=== PATIENT | female | born 1985 | race Caucasian/White ===

== ENCOUNTER 2016-12-28 05:27 | Inpatient (IN) | payer OTHER ==
--- NOTE | 2016-12-26 15:23 | MH ---
cc: ABEL HERNANDEZ M.D. DATE OF ADMISSION: 12/28/2016 REASON FOR ADMISSION: The patient is admitted for repeat section at term. HISTORY OF PRESENT ILLNESS: The patient is a 32-year-old female 2, para 1 with previous section in 2010 for failure to progress who delivered a healthy male infant weighing 7 pounds, 13 ounces. The patient had originally elected for a trial of labor after section and due to an estimated weight at 9 pounds with an unfavorable cervix elected to proceed with a repeat section. Her last menstrual period was 03/29/2016. Her estimated date of confinement is January 03, 2017. She is 39 weeks and 1 day. The patient's course has been unremarkable. Group B Strep negative. One-hour glucose test was normal. The patient's blood type is A+. ALLERGIES: ERYTHROMYCIN. PAST MEDICAL HISTORY: She denies any other systemic or chronic disease states. PAST SURGICAL HISTORY: section in 2010. 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 She is . She denies any use of alcohol, tobacco or illicit substances. MEDICATIONS: The patient's current list of medications includes: 1. vitamins. 2. Zantac 150 twice a day. PHYSICAL EXAMINATION: GENERAL: The patient is a well-appearing female in no acute distress. VITAL SIGNS: Stable. Blood pressure is 120/80, the highest it has been is 140/90. The patient's pulse and respiratory rate are normal. She is afebrile. heart tones are in the 140s and reactive. Biophysical profile recently was 8/8. HEAD, EYES, EARS, NOSE, THROAT: No adenopathy. NECK: No thyromegaly. LUNGS: Clear in all cordova. CARDIAC: Regular rate and rhythm without murmurs, rubs or gallops. ABDOMEN: Gravid. Fundal height is 42 cm. PELVIC: Exam demonstrates a long, thick and closed cervix posterior. No presenting part palpable. Ultrasound is vertex. EXTREMITIES: Symmetrical full range of motion. No cyanosis, clubbing or edema. NEUROLOGIC: Grossly intact. Nonfocal. IMPRESSION: The patient is at 39 weeks and 1 day with history of previous section for elective repeat at term with estimated weight of 9 pounds. Group B Strep status negative. MD [place]/JCVane /1:16 PM /3:04 PM
[2016-12-28] VITALS (12 sets, daily range): BP systolic 105–134; BP diastolic 60–79; PULSE 75–95; RESP 16–20; TEMP 97.9–98.2; O2SAT 96–97
[~2016-12-28] VITALS: Ht 160 cm; Wt 108.9 kg
[2016-12-28] MEDS ORDERED: PREN1TAB63 (05:46)
[2016-12-28] MEDS ORDERED: ZANT150T2 PO (05:47)
[2016-12-28 06:22] LABS: AUTOMATED NEUTROPHIL # 8.5 TH/MM3 (1.8-7.7); BASOPHIL % 0.2 % (0.0-2.0); EOSINOPHIL # 0.1 TH/MM3 (0-0.4); EOSINOPHIL % 0.6 % (0.0-4.0); HEMATOCRIT 34.6 % (35.0-46.0); LYMPH % 21.2 % (9.0-44.0); LYMPHOCYTE # 2.6 TH/MM3 (1.0-4.8); MEAN CELL VOLUME 85.3 FL (80.0-100.0); MEAN CORPUSCULAR HEMOGLOBIN 28.8 PG (27.0-34.0); MEAN CORPUSCULAR HGB CONC 33.7 % (32.0-36.0); MONO % 8.1 % (0.0-8.0); NEUT % 69.9 % (16.0-70.0); PLATELET COUNT 260 TH/MM3 (150-450); RED BLOOD COUNT 4.06 MIL/MM3 (4.00-5.30); RED CELL DISTRIBUTION WIDTH 14.6 % (11.6-17.2); WHITE BLOOD COUNT 12.1 TH/MM3 (4.0-11.0)
[2016-12-28] MEDS ORDERED: ceFAZolin 2 GM PREMIX 50 ML IV SCH (06:30)
[2016-12-28] MEDS ORDERED: CITRIC ACID-SODIUM CITRATE LIQ 30 ML UDC PO SCH (06:30)
[2016-12-28] MEDS ORDERED: LACTATED RINGER'S 1000 ML IV ONE (06:30)
[2016-12-28 06:32] LABS: HEMO FLAGS AUTO DIFF
[2016-12-28 07:06] LABS: BACTERIA, URINE FEW /hpf; BLOOD, URINE NEG (NEG); COMMENT (UR) CULT NOT INDICATED; CULTURE IF INDICATED CULT NOT INDICATED; GLUCOSE,URINE NEG (NEG); HYALINE CAST, URINE 2 /lpf (RARE); KETONE, URINE NEG (NEG); MUCUS URINE FEW /lpf (OCC); NITRITE,URINE NEG (NEG); SQUAMOUS EPITHELIAL CELL URINE <1 /hpf (0-5); TRANSITIONAL EPI CELLS, URINE <1 /hpf; URINE COLOR YELLOW (YELLW/STRAW)
[2016-12-28 07:13] LABS: BANDS 2 % (0-6); MYELOCYTES 2 % (0-0); PLATELET ESTIMATE SMEAR NORMAL (NORMAL); PLATELET MORPHOLOGY NORMAL (NORMAL); POLYS (SEG NEUTROPHILS) 62 % (16-70); SCAN/DIFF FINAL DIFF MANUAL; WBC DIFF SAMPLE 100
[2016-12-28] MEDS ORDERED: OXYTOCIN 10 UNIT/ML AMP ONE (07:14)
[2016-12-28] MEDS ORDERED: SIMETHICONE 80 MG CHEWABLE TAB PO PRN (07:30)
[2016-12-28] MEDS ORDERED: KETOROLAC TROMETHAMINE 60 MG/2 ML (IM) VIAL IM PRN (07:30)
[2016-12-28] MEDS ORDERED: OXYTOCIN 30 UNITS-500ML PREMIX 500 ML IV ONE (07:30)
[2016-12-28] MEDS ORDERED: SODIUM CHLORIDE 0.9% FLUSH 10 ML FLUSH IV FLUSH PRN (07:30)
[2016-12-28] MEDS ORDERED: ONDANSETRON HCL 4 MG/2 ML VIAL IV PUSH PRN (07:30)
[2016-12-28] MEDS: LACTATED RINGER'S 1000 ML INJ 1,000 ML IV SCH ×3 (07:45→15:59)
--- NOTE | 2016-12-28 08:39 | PD.OB.DELI ---
Procedure Note Section Procedure Performed by Gian Tejada Procedure: Repeat Low Transverse Sec Indication for delivery: Desired elective repeat Previous condition: None Informed consent obtained: For anesthesia, For procedure Confirmed correct: Patient, Procedure, Site, Time-out taken Anesthesia: Spinal Medication prior to procedure: As documented in eMAR Monitoring during procedure: Blood pressure monitoring, ekg monitor, doppler, Pulse oximetry Urinary catheter: Inserted using sterile technique, To dependent drainage Sterile preparation: Duraprep, In usual fashion Position: Supine with wedge to right side, Supine with safety belt applied Operative Features Skin Incision: Pfannenstiel Uterine Incision: Low transverse w/knife / scissors Membranes Ruptured: Artificially Presentation: Occiput anterior Delivery date: Dec 28, 2016 Delivery time: 00:00 Delivery of : Assisted (kiwi vacuum x1 pull, no pop off) Infant: Male One Minute : 7 Five Minute : 8 Weight: 7/4 Status of : Viable Placenta delivered: Intact Medications: Antibiotics, Oxytocin Estimated blood loss: 600cc Procedure tolerated: Well Maternal Condition: Stable Condition: Stable Gian Tejada MD Dec 28, 2016 08:39
[2016-12-28] MEDS ORDERED: MORPHINE SULFATE PF 5 MG/10 ML VIAL ONE (08:43)
[2016-12-28] MEDS ORDERED: ACETAMINOPHEN 1000 MG/100 ML 100 ML IV ONE (08:45)
[2016-12-28] MEDS ORDERED: KETOROLAC TROMETHAMINE 30 MG/ML (IVP) VIAL ONE (09:28)
[2016-12-28] MEDS ORDERED: OXYTOCIN 30 UNITS-500ML PREMIX 500 ML ONE (09:37)
[2016-12-28] MEDS: IBUPROFEN 600 MG TAB PO PRN ×2 (16:32→22:48)
[2016-12-28] MEDS: oxyCODONE/ACETAMINOPHEN 5 MG/325 MG TAB PO PRN ×2 (16:32→21:07)
[2016-12-28] MEDS: DOCUSATE SODIUM 50 MG/SENNA 8.6 MG TAB PO PRN (16:33)
[2016-12-28] MEDS ORDERED: OXYTOCIN 30 UNITS-500ML PREMIX 500 ML IV PRN (17:30)
[2016-12-29] VITALS: BP 110/72; PULSE 71; RESP 18; TEMP 98.5
[2016-12-29 02:57] VITALS: RESP 16
[2016-12-29 04:00] VITALS: BP 124/78; PULSE 78; RESP 18; TEMP 98
[2016-12-29] MEDS: oxyCODONE/ACETAMINOPHEN 5 MG/325 MG TAB PO PRN ×4 (04:44→22:09)
[2016-12-29] MEDS: DOCUSATE SODIUM 50 MG/SENNA 8.6 MG TAB PO PRN ×2 (04:44→15:46)
[2016-12-29 08:00] VITALS: BP 109/71; PULSE 75; RESP 18; TEMP 98
--- NOTE | 2016-12-29 09:11 | HHI.OB ---
Subjective Post Operative Day: 1 Remarks no complaints Objective Vitals/I&O Vital Signs Date Time Temp Pulse Resp B/P (MAP) Pulse Ox O2 Delivery O2 Flow Rate FiO2 12/29/16 04:00 78 18 124/78 (93) 12/29/16 04:00 98.0 12/29/16 02:57 16 12/29/16 00:00 98.5 71 18 110/72 (85) 12/28/16 21:00 98.0 75 18 108/66 (80) 12/28/16 17:53 75 12/28/16 17:52 114/78 (90) 12/28/16 15:00 81 20 105/65 (78) 12/28/16 15:00 98.1 12/28/16 10:20 98.0 81 16 112/60 (77) 12/28/16 09:45 97.9 12/28/16 09:35 91 16 134/62 (86) 96 12/28/16 09:21 95 16 132/60 (84) 96 Result Diagram: 12/28/16 06 Objective Remarks GENERAL: Well-nourished, well-developed patient. CARDIOVASCULAR: Regular rate and rhythm without murmurs, gallops, or rubs. RESPIRATORY: Breath sounds equal bilaterally. No accessory muscle use. ABDOMEN/GI: Abdomen soft, non-tender, bowel sounds present. Incision: dressing Clean, dry and intact. Fundus: Firm, non-tender at umbilicus. GENITOURINARY: Light to moderate bleeding. EXTREMITIES: No cyanosis or edema, non-tender, without signs of DVT. Medications and IVs Current Medications Medications (Trade) Dose Ordered Sig/Vin Route Start Time Stop Time Status Last Admin Lactated Ringer's 1,000 ml @ 150 mls/hr Q6H40M IV 12/28/16 06:30 (Bicitra Liq) 30 ml MUD ENGINEER PO 12/28/16 06:30 12/31/16 06:29 12/28/16 07:02 Cefazolin Sodium/ Dextrose 50 ml @ 100 mls/hr MUD ENGINEER IV 12/28/16 06:30 12/31/16 06:29 12/28/16 07:03 Oxytocin 500 ml @ 100 mls/hr UNSCH X1 PRN IV 12/28/16 17:30 12/29/16 17:29 (NS Flush) 2 ml BID IV FLUSH 12/28/16 09:00 (NS Flush) 2 ml UNSCH PRN IV FLUSH 12/28/16 07:30 (Mylicon Chew) 80 mg QID PRN PO 12/28/16 07:30 (Motrin) 600 mg Q6H PRN PO 12/28/16 07:30 12/28/16 22:48 (Percocet 5-325 Mg) 1 tab Q4H PRN PO 12/28/16 07:30 12/29/16 04:44 (Percocet 5-325 Mg) 2 tab Q4H PRN PO 12/28/16 07:30 (Monica-Colace) 2 tab Q12H PRN PO 12/28/16 07:30 12/29/16 04:44 (M-M-R Ii Inj) 0.5 ml ONCE ONCE SQ 12/29/16 16:00 12/29/16 16:01 (Boostrix Inj) 0.5 ml ONCE ONCE IM 12/29/16 16:00 12/29/16 16:01 (Zofran Inj) 4 mg Q6H PRN IV PUSH 12/28/16 07:30 Assessment/Plan Problem List: (1) delivery delivered ICD Codes: O82 - Encounter for delivery without indication Assessment and Plan POD #1 s/p repeat c/s Discharge Planning routine Attending Attestation pt seen by Fifi Cardoso MD Dec 29, 2016 09:11
[2016-12-29] MEDS: IBUPROFEN 600 MG TAB PO PRN ×3 (09:54→22:09)
[2016-12-29] MEDS ORDERED: DIPHTH/TETANUS/ACEL PERTUSSIS (BOOSTER) 0.5 ML VIAL/PFS IM ONE (16:00)
[2016-12-29] MEDS ORDERED: MEASLES, MUMPS, RUBELLA VACCINE 0.5 ML VIAL SQ ONE (16:00)
[2016-12-29] MEDS: SODIUM CHLORIDE 0.9% FLUSH 10 ML FLUSH IV FLUSH SCH (19:45)
[2016-12-29 20:30] VITALS: BP 106/72; PULSE 79; RESP 18; TEMP 98.7
[2016-12-29] MEDS: LACTATED RINGER'S 1000 ML IV SCH (22:05)
[2016-12-30] MEDS: LACTATED RINGER'S 1000 ML IV SCH ×2 (04:08→18:30)
[2016-12-30] MEDS: DOCUSATE SODIUM 50 MG/SENNA 8.6 MG TAB PO PRN (05:25)
[2016-12-30] MEDS: IBUPROFEN 600 MG TAB PO PRN ×3 (05:26→18:15)
[2016-12-30] MEDS: oxyCODONE/ACETAMINOPHEN 5 MG/325 MG TAB PO PRN ×3 (05:26→18:16)
[2016-12-30 08:00] VITALS: BP 130/74; PULSE 76; RESP 18; TEMP 98.5
--- NOTE | 2016-12-30 09:57 | HHI.OB ---
Subjective Post Operative Day: 2 Remarks pt wants to wait for circ tomorrow, baby had episodes of gagging, desat yesterday Objective Vitals/I&O Vital Signs Date Time Temp Pulse Resp B/P (MAP) Pulse Ox O2 Delivery O2 Flow Rate FiO2 12/29/16 20:30 79 106/72 (83) 12/29/16 20:30 98.7 18 Result Diagram: 12/28/16604 Objective Remarks GENERAL: Well-nourished, well-developed patient. CARDIOVASCULAR: Regular rate and rhythm without murmurs, gallops, or rubs. RESPIRATORY: Breath sounds equal bilaterally. No accessory muscle use. ABDOMEN/GI: Abdomen soft, non-tender, bowel sounds present. Incision: Clean, dry and intact. Fundus: Firm, non-tender at umbilicus. GENITOURINARY: Light to moderate bleeding. EXTREMITIES: No cyanosis or edema, non-tender, without signs of DVT. Medications and IVs Current Medications Medications (Trade) Dose Ordered Sig/Vin Route Start Time Stop Time Status Last Admin Lactated Ringer's 1,000 ml @ 150 mls/hr Q6H40M IV 12/28/16 06:30 (Bicitra Liq) 30 ml MANAGER PORTABLE PO 12/28/16 06:30 12/31/16 06:29 12/28/16 07:02 Cefazolin Sodium/ Dextrose 50 ml @ 100 mls/hr MANAGER PORTABLE IV 12/28/16 06:30 12/31/16 06:29 12/28/16 07:03 (NS Flush) 2 ml BID IV FLUSH 12/28/16 09:00 (NS Flush) 2 ml UNSCH PRN IV FLUSH 12/28/16 07:30 (Mylicon Chew) 80 mg QID PRN PO 12/28/16 07:30 (Motrin) 600 mg Q6H PRN PO 12/28/16 07:30 12/30/16 05:26 (Percocet 5-325 Mg) 1 tab Q4H PRN PO 12/28/16 07:30 12/30/16 05:26 (Percocet 5-325 Mg) 2 tab Q4H PRN PO 12/28/16 07:30 (Monica-Colace) 2 tab Q12H PRN PO 9/15/17 07:30 12/30/16 05:25 (Zofran Inj) 4 mg Q6H PRN IV PUSH 12/28/16 07:30 Assessment/Plan Problem List: (1) delivery delivered ICD Codes: O82 - Encounter for delivery without indication Assessment and Plan POD #2 s/p repeat c/s Discharge Planning routine Attending Attestation pt seen by Fifi Cardoso MD Dec 30, 2016 09:57
[2016-12-30] MEDS ORDERED: MAGNESIUM HYDROXIDE SUSP 30 ML CUP PO PRN (12:45)
[2016-12-30] MEDS: SODIUM CHLORIDE 0.9% FLUSH 10 ML FLUSH IV FLUSH SCH (19:23)
[2016-12-30 20:00] VITALS: BP_SYST 124; BP_SYST 164; BP_DIAS 69; BP_DIAS 99; PULSE 76; PULSE 87; RESP 18; TEMP 98.2
--- NOTE | 2016-12-30 22:02 | MP ---
cc: GIAN HERNANDEZ M.D. DATE OF SURGERY 12/28/2016 PREOPERATIVE DIAGNOSIS Term intrauterine , history of previous section, mild -induced hypertension. POSTOPERATIVE DIAGNOSIS Term intrauterine , history of previous section, mild -induced hypertension. PROCEDURE Repeat low transverse section. SURGEON Gian Hernandez MD ANESTHESIA Spinal by Dr. Kilgore. ESTIMATED BLOOD LOSS 600 cc. DRAINS Graham to gravity OPERATIVE FINDINGS Male infant delivered weighing 7 pounds 4 ounces. Loose nuchal cord was identified. Clear fluid. Three-vessel cord. Intact placenta. Baby's Apgars were 7 at one minute and 8 at five minutes. The baby weighed 7 pounds 4 ounces. INDICATIONS FOR PROCEDURE Patient with unfavorable cervix, desired a trial of labor. After discussing options and the unfavorable pelvis and cervix the patient elected for repeat section. Preop the patient received Ancef 2 grams prophylactically. PROCEDURE DETAILS She was taken to the operating room in stable condition and underwent spinal anesthetic without complication. She was prepped and draped. Graham was inserted by sterile technique and sequentials were placed on the lower extremities for VTE prophylaxis. Time-out was conducted and agreed by all present in the room. The patient had excellent pain control throughout. Previous Pfannenstiel incision was utilized taking it through the skin down through subcutaneous layer identifying the fascia and scoring it sharply and then dissecting it away from the rectus muscle, identifying the rectus muscle in the midline, opening the peritoneum sharply without complication, establishing a plane in the lower uterine segment, dissecting the peritoneum away from the lower uterine segment. And then a transverse incision was made in the lower uterine segment with clear fluid. The incision was then extended bluntly. The infant vertex was identified and secured with a Kiwi vacuum extractor and just gentle traction was applied. Delivery of the head was accomplished without difficulty. Nuchal cord was reduced easily. The infant was delivered in total with good tone and cry. The cord was doubly clamped and cut and passed off the operative field by the nurse in attendance. Cord samples obtained for typing. The placenta and cord were removed intact with trailing membranes. No retained tissue. Specimen was sent for donation. Uterus was explored. No retained tissue. Bleeding was minimal. Closure was accomplished with a double layer using 0 Monocryl first as a running simple suture followed by a second imbricating suture of 0 Monocryl. This uterus was normal size and shape, appropriate for immediate the postop delivery. No masses were identified. The full count was made and correct. The peritoneal layer was then closed with running suture of 2-0 Monocryl. Muscle bellies reapproximated with interrupted mattress suture of 2-0 Monocryl and the fascia was closed with 0 Vicryl in a simple running fashion. Subcutaneous layer was irrigated. Any active bleeding was cauterized and the space was reapproximated with a running suture of 2-0 Monocryl and renu were used close the skin. Excellent closure was noted. No active bleeding. The patient was stable. Dressing was applied. The final count was correct. was doing well in the nursery. Gian Hernandez MD [facility]/KK /8:40 AM /9:46 PM
[2016-12-31] MEDS: oxyCODONE/ACETAMINOPHEN 5 MG/325 MG TAB PO PRN ×3 (00:50→12:39)
[2016-12-31] MEDS: IBUPROFEN 600 MG TAB PO PRN ×2 (00:50→07:27)
[2016-12-31] MEDS: LACTATED RINGER'S 1000 ML IV SCH ×2 (01:10→06:52)
[2016-12-31 08:00] VITALS: BP 125/81; PULSE 70; RESP 12; TEMP 98.1
--- NOTE | 2016-12-31 08:55 | HHI.OB ---
Subjective Post Operative Day: 3 Remarks POD#3; doing well, stable for discharge Objective Vitals/I&O Vital Signs Date Time Temp Pulse Resp B/P (MAP) Pulse Ox O2 Delivery O2 Flow Rate FiO2 12/30/16 20:00 98.2 87 18 12/30/16 20:00 164/99 (120) 12/30/16 20:00 76 124/69 (87) Result Diagram: 12/28/16 0605 Objective Remarks GENERAL: Well-nourished, well-developed patient. CARDIOVASCULAR: Regular rate and rhythm without murmurs, gallops, or rubs. RESPIRATORY: Breath sounds equal bilaterally. No accessory muscle use. ABDOMEN/GI: Abdomen soft, non-tender, bowel sounds present. Incision: Clean, dry and intact. Fundus: Firm, non-tender at umbilicus. GENITOURINARY: Light to moderate bleeding. EXTREMITIES: No cyanosis or edema, non-tender, without signs of DVT. Medications and IVs Current Medications Medications (Trade) Dose Ordered Sig/Vin Route Start Time Stop Time Status Last Admin Lactated Ringer's 1,000 ml @ 150 mls/hr Q6H40M IV 12/28/16 06:30 (NS Flush) 2 ml BID IV FLUSH 12/28/16 09:00 (NS Flush) 2 ml UNSCH PRN IV FLUSH 12/28/16 07:30 (Mylicon Chew) 80 mg QID PRN PO 12/28/16 07:30 (Motrin) 600 mg Q6H PRN PO 12/28/16 07:30 12/31/16 07:27 (Percocet 5-325 Mg) 1 tab Q4H PRN PO 12/28/16 07:30 12/31/16 00:50 (Percocet 5-325 Mg) 2 tab Q4H PRN PO 12/28/16 07:30 12/31/16 07:27 (Monica-Colace) 2 tab Q12H PRN PO 12/28/16 07:30 12/30/16 05:25 (Zofran Inj) 4 mg Q6H PRN IV PUSH 12/28/16 07:30 (Milk Of Magnesia Liq) 15 ml Q6H PRN PO 12/30/16 12:45 12/30/16 14:08 Assessment/Plan Problem List: (1) delivery delivered ICD Codes: O82 - Encounter for delivery without indication Assessment and Plan POD #3 ;s/p repeat c/s Plan discharge Discharge Planning routine Attending Attestation seen by Gian Oconnor MD Dec 31, 2016 08:55
[2016-12-31] MEDS ORDERED: OXYC1TAB63 PO (08:58)
[2016-12-31] MEDS ORDERED: IBUP-232 PO (08:58)
--- NOTE | 2016-12-31 08:58 | HHI.DS ---
Admission Date Dec 28, 2016 at 05:27 Admitting Diagnosis Diagnosis: Delivery Date: Dec 28, 2016 : Repeat : Male Pt Condition on Discharge: Good Discharge Disposition: Discharge Home Discharge Instructions Diet Instructions: As Tolerated, No Restrictions Activities You Can Perform: Shower Only-No Bath Activities to Avoid: Prolonged Standing, Strenuous Activity, Driving, Sexual Activity Gian Tejada MD Dec 31, 2016 08:58
== END 2016-12-31 13:11 | disposition home or self-care (01) | DRG 766 ==
LOC: H2EB 05:27 → H1EA 10:02
PROVIDERS: ADMIT Obstetrics & Gynecology; ATTEND Obstetrics & Gynecology
PROC: 10D00Z1 Extraction of Products of Conception, Low, Open Approach (ICD-10-PCS; principal; 2016-12-28)
DX: O34.211 Maternal care for low transverse scar from previous cesarean delivery (principal); O13.9 Gestational [pregnancy-induced] hypertension without significant proteinuria, unspecified trimester; O69.81X0 Labor and delivery complicated by cord around neck, without compression, not applicable or unspecified; Z37.0 Single live birth; Z3A.39 39 weeks gestation of pregnancy
CPT/HCPCS: 59025; 81001; 85007; 85027; 86850; 86900; 86901; 90715; J0690; J1885; J2274; J2590; J7120

== ENCOUNTER 2018-05-30 07:30 | Inpatient (IN) ==
--- NOTE | 2018-05-30 10:04 | MH ---
cc: Gian Tejada MD DATE OF ADMISSION: 05/30/2018 HISTORY OF PRESENT ILLNESS: The patient is a 33-year-old female, 3, para 2, history of 2 previous sections, who is admitted for elective repeat section at term. The patient's course: The patient was a late entrant to care. The patient presented at approximately 28 weeks gestation. The patient's last menstrual period was undocumented. The patient's estimated due date was based on serial sonography and was calculated at 06/07/2018. The patient has had an uncomplicated course. The patient's group B strep status is negative. Diabetic screening was normal. Serology testing was normal. The patient's blood type is A positive. Sickle cell negative, hepatitis C nonreactive. Thyroid TSH was 1.35. Drug screen was negative. ALLERGIES: SHE IS ALLERGIC TO ERYTHROMYCIN. CURRENT MEDICATIONS: vitamins. PAST OBSTETRICAL HISTORY: Two previous sections at term, uncomplicated. Both males, first was in 2010, followed by 2017. 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 She denies use of alcohol, tobacco or illicit substances. FAMILY HISTORY: Noncontributory. PHYSICAL EXAMINATION: This is a well-appearing female in no acute distress. VITAL SIGNS: Stable. Blood pressure 132/88. heart tones in the 140s. She is afebrile. HEENT: Shows no adenopathy. No thyromegaly. Neck is supple with full range of motion. Pupils are equally round and reactive to light. Extraocular eye movements are intact. LUNGS: Clear in all cordova. CARDIAC: Regular rhythm without murmur, rub or gallop. Regular heart rate. ABDOMEN: Gravid, full-term, fundal height is 42 cm. Previous Pfannenstiel incision is well healed. PELVIC: Deferred. Patient had no signs of pain, bleeding, or contractions. Vertex presentation was documented by most recent ultrasound, which was dated 05/07/2018. Estimated weight at that time was 6 pounds 6 ounces. Predicted weight at delivery is approximately 7-1/2 to 8 pounds. NEUROLOGIC: The patient's neurologic exam was grossly intact, nonfocal. EXTREMITIES: Symmetrical full range of motion. No cyanosis, clubbing or edema. ASSESSMENT: 1. The patient has a 39-week intrauterine gestation. 2. Previous sections times 2, for elective repeat section. The patient is considering and contemplating having a tubal ligation at the time of her procedure, but at the time of this dictation, was undecided. The patient will receive Ancef 2 grams prophylactically. Again, group B strep status is negative. Gian Tejada MD SJVane/sb , 09:22 AM , 09:30 AM
[2018-06-01] MEDS ORDERED: ceFAZolin 2 GM Premix Inj 2 GM/50 ML PIGGYBACK IV.SIG PRN (08:13)
[2018-06-01] MEDS ORDERED: Citric Acid/Sodium Citrate Liq 30 ML UDC PO SCH (08:15)
[2018-06-01 08:24] LABS: Baso # (Auto) 0.1 th/mm3 (0.0-0.2); Baso % (Auto) 0.6 % (0.0-2.0); Eos # (Auto) 0.1 th/mm3 (0.0-0.4); Eos % (Auto) 0.7 % (0.0-4.0); Hematocrit 36.9 % (35.0-46.0); Hemoglobin 12.5 gm/dL (11.6-15.3); Lymph # (Auto) 1.9 th/mm3 (1.0-4.8); Lymph % (Auto) 18.1 % (9.0-44.0); Mean Corpuscular Hemoglobin 28.8 pg (27.0-34.0); Mean Corpuscular Volume 84.7 fL (80.0-100.0); Mean Platelet Volume 8.4 fL (7.0-11.0); Mono # (Auto) 0.8 th/mm3 (0.0-0.9); Mono % (Auto) 7.2 % (0.0-8.0); Neut # (Auto) 7.9 th/mm3 (1.8-7.7); Neut % (Auto) 73.4 % (16.0-70.0); Platelet Count 296 th/mm3 (150-450); Red Blood Count 4.35 mil/mm3 (4.00-5.30); Red Cell Distribution Width 15.1 % (11.6-17.2); White Blood Count 10.7 th/mm3 (4.0-11.0)
[2018-06-01] MEDS ORDERED: Morphine Sulfate PF Inj 5 MG/10 ML Ampul ONE (08:43)
[2018-06-01 09:04] LABS: Total Protein,Urine Random 13.8 mg/dL (0-11.8)
[2018-06-01 09:09] LABS: Albumin 2.2 g/dL (3.4-5.0); Anion Gap 9 meq/L (5-15); Aspartate Aminotransferase 12 U/L (15-37); Blood Urea Nitrogen 8 mg/dL (7-18); Calcium 8.3 mg/dL (8.5-10.1); Carbon Dioxide 24.8 meq/L (21.0-32.0); Chloride 105 meq/L (98-107); Glomerular Filtration Rate Greater Than 89 mL/min (>89); Glucose,Random 70 mg/dL (74-106); Potassium 3.7 meq/L (3.5-5.1); Sodium 139 meq/L (136-145)
[2018-06-01 09:10] LABS: Alanine Aminotransferase 14 U/L (10-53)
[2018-06-01 09:10] LABS: Protein/Creatinine Ratio,Urine 0.1 (0.00-0.14)
[2018-06-01 09:12] LABS: Alkaline Phosphatase 135 U/L (45-117); Total Protein 6.2 g/dL (6.4-8.2)
[2018-06-01] MEDS ORDERED: Oxytocin 30 Units/500ml Premix 30 UNITS/500 ML BAG IV.SIG ONE (09:23)
[2018-06-01] MEDS ORDERED: Simethicone 80 MG Chew Tablet PO PRN (09:23)
[2018-06-01 10:24] LABS: Amphetamine Screen,Urine Neg (Neg); Barbiturate Screen,Urine Neg (Neg); Cannabinoid Screen,Urine Neg (Neg); Cocaine Screen,Urine Neg (Neg)
[2018-06-01 10:25] LABS: Opiate Screen,Urine Neg (Neg)
--- NOTE | 2018-06-01 10:47 | P.OBDELI ---
Procedure Note Performed by: Gian Tejada MD Procedure: Repeat Low Transverse Section (with bilateral tubal ligation , modified aamir) Indication for Delivery: Desired elective repeat Informed Consent Obtained: For anesthesia, For procedure Confirmed Correct: Patient, Procedure, Site, Time-out taken Anesthesia: Spinal Medication Prior to Procedure: As documented in eMAR Monitoring During Procedure: Blood pressure monitoring, quality assurance monitor body, doppler, Pulse oximetry Urinary Catheter: Inserted using sterile technique, To dependent drainage Sterile Preparation: Duraprep, In usual fashion Position: Supine with wedge to right side, Supine with safety belt applied - Operative Features Skin Incision: Pfannenstiel Uterine Incision: Low transverse w/knife / scissors Membranes Ruptured: Artificially, Appearance of fluid (clear) Presentation: Occiput anterior Status of : Viable, Cord blood, Nursery present Placenta Delivered: Intact Medications: Antibiotics, Oxytocin Estimated blood loss (mL): 600 Procedure Tolerated: Well Maternal Condition: Stable Baby Condition: Stable - Infant: Female ("Cooter") Delivery Date: 06/01/18 Weight: 3.09 kg score (1 min): 9 score (5 min): 9
[2018-06-01] MEDS ORDERED: Naloxone Inj 0.4 MG/ML Vial IV.PUSH PRN (12:18)
[2018-06-01] MEDS ORDERED: Oxytocin 30 Units/500ml Premix 30 UNITS/500 ML BAG IV.SIG PRN (14:23)
[2018-06-01] MEDS ORDERED: ceFAZolin Inj 2,000 MG in Sodium Chlor 0.9% Inj 80 ML IV.SIG SCH (18:00)
[2018-06-01] MEDS: ceFAZolin 2 GM Premix Inj 2 GM/50 ML PIGGYBACK IV.SIG SCH (18:06)
[2018-06-02] MEDS: ceFAZolin 2 GM Premix Inj 2 GM/50 ML PIGGYBACK IV.SIG SCH (02:11)
[2018-06-02 06:47] LABS: Baso % (Auto) 0.3 % (0.0-2.0); Eos # (Auto) 0.1 th/mm3 (0.0-0.4); Hemoglobin 10.8 gm/dL (11.6-15.3); Lymph # (Auto) 2.2 th/mm3 (1.0-4.8); Lymph % (Auto) 21.1 % (9.0-44.0); Mean Corpuscular HGB Conc 33.9 % (32.0-36.0); Mean Corpuscular Hemoglobin 28.8 pg (27.0-34.0); Mean Platelet Volume 8.3 fL (7.0-11.0); Mono # (Auto) 0.8 th/mm3 (0.0-0.9); Mono % (Auto) 8.3 % (0.0-8.0); Neut # (Auto) 7.1 th/mm3 (1.8-7.7); Neut % (Auto) 69.3 % (16.0-70.0); Platelet Count 249 th/mm3 (150-450); Red Blood Count 3.76 mil/mm3 (4.00-5.30); Red Cell Distribution Width 15.5 % (11.6-17.2); White Blood Count 10.3 th/mm3 (4.0-11.0)
[2018-06-02] MEDS ORDERED: Measles/Mumps/Rubella Vaccine Inj 0.5 ML Vial SQ ONE (16:00)
[2018-06-02] MEDS ORDERED: Diphtheria/Tetanus/Pertussis Vaccine Inj 0.5 ML Syringe IM ONE (16:00)
[2018-06-02] MEDS: Senna/Docusate Sodium 8.6/50 MG Tablet PO PRN (16:16)
--- NOTE | 2018-06-02 17:19 | P.PNOB ---
Subjective Post op day: 1 Interval history: in reasonable spirits after elective repeat section (third) byt Dr. Pham no complaints Objective Vital Signs/I&O: Vital Signs 06/01/18 20:30 06/01/18 23:00 06/02/18 04:00 Temperature 98.6 F 98.0 F 98.0 F Pulse Rate 69 69 66 Respiratory Rate 18 18 18 Blood Pressure 124/65 104/65 115/67 06/02/18 07:56 Temperature 98.6 F Pulse Rate 71 Respiratory Rate 18 Blood Pressure 111/64 Intake & Output 06/01/18 06/02/18 06/02/18 18:59 06:59 18:59 Intake Total 50 / 50 Balance 50 / 50 Weight 111.13 kg Intake: IV 50 / 50 Ancef 2 GM Premix Inj 2 gm In 50 / 50 50 ml @ 100 mls/hr IV.SIG Q8H [facility] Rx#:[id number] Result Diagrams: 06/02/18 06:10 06/01/18 08:35 Objective Remarks: GENERAL: Well-nourished, well-developed patient. CARDIOVASCULAR: Regular rate and rhythm without murmurs, gallops, or rubs. RESPIRATORY: Breath sounds equal bilaterally. No accessory muscle use. ABDOMEN/GI: Abdomen soft, non-tender, bowel sounds present. Incision: Clean, dry and intact. Fundus: Firm, non-tender at umbilicus. GENITOURINARY: Light to moderate bleeding. EXTREMITIES: No cyanosis or edema, non-tender, without signs of DVT. 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 [facility] Stop: 06/05/18 08:14 Last Admin: 06/01/18 09:20 Dose: 30 ml Oxytocin (Pitocin 30 Units/Ns 500 Ml Premix) 30 units in 500 mls @ 100 mls/hr IV.SIG UNSCH PRN PRN Reason: Heavy bleeding Ibuprofen (Motrin) 800 mg PO Q8H PRN PRN Reason: cramping Last Admin: 06/02/18 12:14 Dose: 800 mg Ondansetron HCl (Zofran Inj) 4 mg IV.PUSH Q6H PRN PRN Reason: NAUSEA OR VOMITING Oxycodone/Acetaminophen (Percocet 5/325 Mg) 2 tab PO Q4H PRN PRN Reason: PAIN SCALE 6 TO 10 Last Admin: 06/01/18 17:57 Dose: 2 tab Oxycodone/Acetaminophen (Percocet 5/325 Mg) 1 tab PO Q4H PRN PRN Reason: PAIN SCALE 3 TO 5 Last Admin: 06/02/18 16:17 Dose: 1 tab Senna/Docusate Sodium (Monica-Colace) 2 tab PO Q12H PRN PRN Reason: CONSTIPATION Last Admin: 06/02/18 16:16 Dose: 2 tab Simethicone (Mylicon Chew) 80 mg PO QID PRN PRN Reason: FLATULENCE Sodium Chloride (Ns Flush) 2 ml IV.FLUSH BID GRZEGORZ Last Admin: 06/02/18 08:11 Dose: Not Given Sodium Chloride (Ns Flush) 2 ml IV.FLUSH PRN PRN PRN Reason: FLUSH AFTER USING IV ACCESS Assessment and Plan - Plan doing well anticipate discharge on POD 2 or 3 depending upon her preference
[2018-06-03] MEDS: Senna/Docusate Sodium 8.6/50 MG Tablet PO PRN (07:04)
[2018-06-03 08:10] VITALS: BP 131/71; PULSE 73
[2018-06-03 08:11] VITALS: RESP 18; TEMP 98
--- NOTE | 2018-06-03 14:18 | P.PNOB ---
Subjective Post op day: 2 Interval history: doing very well and desires discharge nursing well pain controlled Objective Vital Signs/I&O: Vital Signs 06/02/18 20:38 06/03/18 08:00 Temperature 98.2 F 98.0 F Pulse Rate 70 73 Respiratory Rate 16 18 Blood Pressure 113/69 131/71 Result Diagrams: 06/02/18 06:10 06/01/18 08:35 Objective Remarks: GENERAL: Well-nourished, well-developed patient. CARDIOVASCULAR: Regular rate and rhythm without murmurs, gallops, or rubs. RESPIRATORY: Breath sounds equal bilaterally. No accessory muscle use. ABDOMEN/GI: Abdomen soft, non-tender, bowel sounds present. Incision: Clean, dry and intact. Fundus: Firm, non-tender at umbilicus. GENITOURINARY: Light to moderate bleeding. EXTREMITIES: No cyanosis or edema, non-tender, without signs of DVT. 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 GRZEGORZ Stop: 06/05/18 08:14 Last Admin: 06/01/18 09:20 Dose: 30 ml Oxytocin (Pitocin 30 Units/Ns 500 Ml Premix) 30 units in 500 mls @ 100 mls/hr IV.SIG UNSCH PRN PRN Reason: Heavy bleeding Ibuprofen (Motrin) 800 mg PO Q8H PRN PRN Reason: cramping Last Admin: 06/03/18 07:04 Dose: 800 mg Ondansetron HCl (Zofran Inj) 4 mg IV.PUSH Q6H PRN PRN Reason: NAUSEA OR VOMITING Oxycodone/Acetaminophen (Percocet 5/325 Mg) 2 tab PO Q4H PRN PRN Reason: PAIN SCALE 6 TO 10 Last Admin: 06/01/18 17:57 Dose: 2 tab Oxycodone/Acetaminophen (Percocet 5/325 Mg) 1 tab PO Q4H PRN PRN Reason: PAIN SCALE 3 TO 5 Last Admin: 06/03/18 07:05 Dose: 1 tab Senna/Docusate Sodium (Monica-Colace) 2 tab PO Q12H PRN PRN Reason: CONSTIPATION Last Admin: 06/03/18 07:04 Dose: 2 tab Simethicone (Mylicon Chew) 80 mg PO QID PRN PRN Reason: FLATULENCE Last Admin: 06/03/18 07:06 Dose: 80 mg Sodium Chloride (Ns Flush) 2 ml IV.FLUSH BID GRZEGORZ Last Admin: 06/03/18 10:01 Dose: Not Given Sodium Chloride (Ns Flush) 2 ml IV.FLUSH PRN PRN PRN Reason: FLUSH AFTER USING IV ACCESS Assessment and Plan - Plan doing well anticipate discharge on POD 2 or 3 depending upon her preference 06/03/18 ready for discharge
== END 2018-06-03 15:41 | disposition home or self-care (01) | DRG 785 ==
LOC: H2E 12:31 → H1EA 06-01 12:00
PROVIDERS: ADMIT Obstetrics & Gynecology; ATTEND Obstetrics & Gynecology
CPT/HCPCS: 59025; 80053; 80307; 82570; 84155; 84157; 85025; 86850; 86900; 86901; 88302; J0131; J0690; J2274; J2590; J7120